=== PATIENT | male | born 1975 | race Caucasian/White ===

== ENCOUNTER 2017-07-15 16:36 | Inpatient (IN) | payer BC ==
[~2017-07-15] VITALS: Ht 180.3 cm; Wt 95.3 kg
--- NOTE | ~2017-07-15 | EKG ---
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
--- NOTE | ~2017-07-15 | HC ---
[facility] [place] [address] CONSULTATION Name: BEN PRUETT Room #: 422-P [facility] IN .R.#: [id number] Admission: 07/15/17 Attend Phys: Zurdo Godwin MD Discharge: 07/17/17 Date of : 75 Report #: [id number] THIS REPORT FOR: //name// CC: Zurdo Godwin NO PCP TYPE OF REPORT: Infectious disease consultation. REASON FOR CONSULTATION: I was asked to evaluate the patient concerning recurrent right lower extremity cellulitis. HISTORY OF PRESENT ILLNESS: The patient was a 41-year-old otherwise healthy individual who presents with acute onset of fever, chills, sweats, myalgias, arthralgias and pain in his right lower extremity. About 3 years ago, he had a right lower extremity cellulitis and lymphangitis. He has had intermittent episodes of tinea pedis. Most recently, he has been needing treatment for his right foot athlete's foot. He has been on and off topical antifungal agents. Still has a fairly large patch involving his right dorsal foot. He admitted to the Emergency Room. Blood cultures remain negative. He is placed on vancomycin and Zosyn. Over the last 24 hours, he has improved. The erythema starting to recede. No further fever or chills. Appetite is good. REVIEW OF SYSTEMS: Notes no headache, cough, sputum, nausea, vomiting or diarrhea. No dysuria or frequency. No other skin disorder. No history of diabetes or current hyperglycemic episode. ALLERGIES: None known. MEDICATIONS: As noted on his MAR, which were reviewed. PAST MEDICAL HISTORY: Otherwise unremarkable. FAMILY HISTORY: Noncontributory. SOCIAL HISTORY: He is a nonsmoker. No significant alcohol. Works in a machine shop, on his feet all day. REVIEW OF SYSTEMS: As noted above. PHYSICAL EXAMINATION: VITAL SIGNS: He is afebrile, hemodynamically stable. GENERAL: He is alert and cooperative and pleasant, in no acute distress. Moderately obese. HEENT: Unremarkable. NECK: Supple. LYMPHATIC: No adenopathy. Did have some increased nodes and tenderness in the [facility] [address] [address] CONSULTATION Name: SEBLEBEN Sid Room #: 422-P [facility] IN ..#: [id number] Admission: 07/15/17 Attend Phys: Zurdo Godwin MD Discharge: 07/17/17 Date of : 75 Report #: [id number] right groin. LUNGS: Clear. HEART: Regular. ABDOMEN: Soft and nontender. EXTREMITIES: Right foot changes of tinea pedis and dermatitis over the dorsum of his foot. Erythema extends from his ankle up to his proximal calf, fairly circumferential. Also, has a streak of lymphangitis up his medial thigh up into the groin. NEUROLOGICAL: Normal. Pulses in the foot normal. LABORATORY STUDIES: Sodium 139, potassium 4.1, bicarbonate is 26 and creatinine 1. Liver function test normal. Hemoglobin 12.6; white count 9.6 down from 22.7 on admission and platelet count 212,000. Vancomycin trough 9. Urinalysis unremarkable. Fasting glucose 99. Hemoglobin A1c was 5.3. Blood cultures negative. Swab of his foot wound shows no organisms. Culture is pending. RADIOLOGICAL DATA: X-ray of the chest clear. Ultrasound of the right lower extremity negative for DVT. IMPRESSION: A 41-year old with recurring cellulitis, right lower extremity in the setting of dermatitis to his right foot. He has associated lymphangitis. I am suspecting that the dermatitis in his foot is the risk factor for his relapse. This is typically a streptococcal infection. RECOMMENDATIONS: We will arrange the outpatient antibiotic therapy with ceftriaxone 1 gram IV q. [address] a midline catheter. Topical antifungal and topical steroids for his foot rash. Discussed with him further treatment for prevention of athlete's foot. He will monitor for lower extremity edema and use compression stockings as needed. He will follow up first of next week after completing his IV antibiotic therapy for further recommendations. <ELECTRONICALLY SIGNED> By: Anjum Don MD 07/18/17 1732 1201 1216 Anjum Don MD /nt
[2017-07-15 16:38] VITALS: BP 127/86
[2017-07-15 17:06] LABS: URINE BILIRUBIN NEGATIVE (Negative); URINE BLOOD NEGATIVE (Negative); URINE CLARITY CLEAR; URINE COLOR YELLOW; URINE GLUCOSE-RANDOM* NEGATIVE (Negative); URINE KETONES NEGATIVE (Negative); URINE LEUKOCYTES NEGATIVE (Negative); URINE NITRITE NEGATIVE (Negative); URINE PROTEIN (DIPSTICK) NEGATIVE (Negative); URINE SPECIFIC GRAVITY 1.025 (1.005-1.035); URINE UROBILINOGEN 0.2 E.U./dl (0.2-1.0)
[2017-07-15 17:57] LABS: HEMATOCRIT 42.1 % (42.0-52.0); HEMOGLOBIN 14.4 gm/dL (14.0-18.0); MCH 31.5 pg (26.0-34.0); MCHC 34.1 g/dL (28.0-37.0); MCV 92.3 fL (80.0-100.0); PLATELET COUNT 266 thou/uL (150-400); RBC 4.56 mil/uL (4.50-6.00); RDW 12.6 % (10.5-14.5); WBC 22.7 thou/uL (4.0-11.0)
[2017-07-15 18:06] LABS: ANION GAP 6 mmol/L (7-16); BUN 15 mg/dL (7-18); CALCIUM 9.5 mg/dL (8.5-10.1); CHLORIDE 100 mmol/L (98-107); CO2 28 mmol/L (21-32); CREATININE 1.2 mg/dL (0.7-1.3); GLUCOSE 119 mg/dL (74-106); POTASSIUM 4.2 mmol/L (3.5-5.1); SODIUM 134 mmol/L (136-145)
[2017-07-15 18:17] LABS: ALBUMIN 3.9 g/dL (3.4-5.0); DIRECT BILIRUBIN < 0.1 mg/dL (<0.1-0.3); LIPASE 92 U/L (73-393); SGOT 19 U/L (15-37); SGPT 51 U/L (30-65); TOTAL BILIRUBIN 0.6 mg/dL (<0.1-1.0); TOTAL PROTEIN 7.4 g/dL (6.4-8.2); TROPONIN-I < 0.04 ng/mL (<0.06)
[2017-07-15 18:21] LABS: ABSOLUTE NEUTROPHILS 21.1 thou/uL (1.4-8.2)
[2017-07-15 21:15] VITALS: BP 119/78
[2017-07-16 02:05] LABS: HEMATOCRIT 38.4 % (42.0-52.0); MCH 31.5 pg (26.0-34.0); MCHC 33.9 g/dL (28.0-37.0); MCV 92.9 fL (80.0-100.0); RBC 4.14 mil/uL (4.50-6.00); RDW 12.8 % (10.5-14.5); WBC 23.8 thou/uL (4.0-11.0)
[2017-07-16 02:15] LABS: ALBUMIN 3.3 g/dL (3.4-5.0); CALCIUM 8.5 mg/dL (8.5-10.1); CREATININE 1.3 mg/dL (0.7-1.3); POTASSIUM 3.9 mmol/L (3.5-5.1); TOTAL BILIRUBIN 0.6 mg/dL (<0.1-1.0); TOTAL PROTEIN 6.5 g/dL (6.4-8.2)
[2017-07-16 04:08] VITALS: BP 126/70
[2017-07-16 08:00] VITALS: BP 102/62
[2017-07-16 15:11] LABS: GLYCOHEMOGLOBIN (HGB A1C) 5.3 % (4.8-5.6)
[2017-07-16 15:25] VITALS: BP 121/76
[2017-07-16 20:05] VITALS: BP 131/87
[2017-07-17 03:24] VITALS: BP 134/80
[2017-07-17 06:37] LABS: HEMATOCRIT 36.2 % (42.0-52.0); HEMOGLOBIN 12.6 gm/dL (14.0-18.0); MCH 32.3 pg (26.0-34.0); MCHC 34.8 g/dL (28.0-37.0); MCV 92.9 fL (80.0-100.0); RBC 3.9 mil/uL (4.50-6.00); RDW 12.9 % (10.5-14.5); WBC 9.6 thou/uL (4.0-11.0)
[2017-07-17 06:38] LABS: CALCIUM 8.5 mg/dL (8.5-10.1); MAGNESIUM 1.9 mg/dL (1.8-2.4); POTASSIUM 4.1 mmol/L (3.5-5.1)
[2017-07-17 08:00] VITALS: BP 125/84
[2017-07-17 15:45] VITALS: BP 125/84
== END 2017-07-17 17:36 | disposition home or self-care (01) | DRG 872 ==
LOC: ER 16:36 → EROBS 18:44 → 4E 18:44 → ENTRNSPT 07-17 17:24 → 4E 07-17 17:36
PROVIDERS: Internal Medicine; Nurse Practitioner
DX: A41.9 Sepsis, unspecified organism (principal); L03.115 Cellulitis of right lower limb; R65.20 Severe sepsis without septic shock; L30.9 Dermatitis, unspecified
CPT/HCPCS: 10084; 27001

== ENCOUNTER 2018-07-18 20:38 | Emergency (ER) | payer BC ==
[~2018-07-18] VITALS: Ht 180.3 cm; Wt 122.0 kg
[2018-07-18] MEDS ORDERED: HYDROCORTISONE1.5 GM TOP (21:33)
[2018-07-18] MEDS ORDERED: KEFLEX500 M1 PO (21:38)
[2018-07-18 22:04] VITALS: BP 140/88
== END 2018-07-18 22:05 | disposition home or self-care (01) ==
LOC: ER 20:38
DX: L30.9 Dermatitis, unspecified (principal)